=== PATIENT | female | born 1970 | race Caucasian/White ===

== ENCOUNTER → 2022-07-06 16:02 | Outpatient (CLI) | payer OTHER, SELFPAY ==
--- NOTE | ~2022-07-06 | XR_ITS ---
EXAM: XR lumbar spine 2-3V DATE: 07/06/2022 16:27 HISTORY: low back pain, unspecified . COMPARISON: None available. FINDINGS: Left-sided stimulator, leads projecting over the lower thoracic spine. 5 nonrib-bearing lum bar-type vertebral bodies. Pedicles intact. Normal vertebral body alignment. Vertebral body heights p reserved. Multilevel moderate loss of disc height with marginal osteophytosis. Multilevel mild facet sclerosis and hypertrophy in the lower lumbar spine. No fracture or dislocation. IMPRESSION: Multilevel moderate degenerative disc disease and facet arthropathy. Reviewed, dictated and finalized at location [facility] IMPRESSION: Multilevel moderate degenerative disc disease and facet arthropathy .
== END ==
PROVIDERS: PCP Nurse Practitioner Family; Visit Provider Nurse Practitioner Family
DX: M51.36 Other intervertebral disc degeneration, lumbar region (principal)
CPT/HCPCS: 72100